=== PATIENT | female | born 1970 | race African-American/Black ===

== ENCOUNTER 2022-10-02 12:30 | Emergency (ER) | payer OTHER ==
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
[2022-10-02 14:35] VITALS: BP 168/96; TEMP 98.1; O2SAT 98
== END 2022-10-02 14:13 | disposition home or self-care (01) ==
LOC: ER 12:30
DX: S13.4XXA Sprain of ligaments of cervical spine, initial encounter (principal); G89.11 Acute pain due to trauma; R07.9 Chest pain, unspecified
CPT/HCPCS: 71046; 72040; 99284